=== PATIENT | female | born 1990 | race Hispanic/Latino ===

== ENCOUNTER 2016-08-16 07:57 | Inpatient (IN) | payer SELFPAY ==
[2016-08-16 08:55] LABS: Basophils % (Auto) 0.7 % (0.0-1.8); Eosinophils % (Auto) 1.7 % (0.0-4.3); Hemoglobin 14.1 gm/dl (10.1-14.3); Mean Corpuscular HGB Conc 34 % (30-34); Mean Corpuscular Hemoglobin 28 pg (28-32); Mean Corpuscular Volume 84 fl (79-97); Platelet Count 237 K/mm3 (140-440); Red Blood Count 5.03 M/mm3 (3.65-5.03); Red Cell Distribution Width 13.9 % (13.2-15.2); White Blood Count 9.5 K/mm3 (4.5-11.0)
[2016-08-16] MEDS ORDERED: NACL 0.9% 1000 ML 1,000 ML IV ONE (09:01)
[2016-08-16 09:10] LABS: Bacteria,Urine 1+ /HPF (Negative); Bilirubin,Urine NEG (Negative); Blood,Urine MOD (Negative); Ketones,Urine NEG (Negative); Leukocyte Esterase,Urine TR (Negative); Mucus,Urine 3+ /HPF; Nitrite,Urine NEG (Negative)
[2016-08-16 09:20] LABS: Alanine Aminotransferase 21 units/L (7-56); Albumin 3.9 g/dL (3.9-5); Albumin/Globulin Ratio 1.2 %; Alkaline Phosphatase 80 units/L (35-129); Anion Gap 14 mmol/L; BUN/Creatinine Ratio 14.28; Blood Urea Nitrogen 10 mg/dL (7-17); Calcium 9.3 mg/dL (8.4-10.2); Carbon Dioxide 29 mmol/L (22-30); Chloride 105.1 mmol/L (98-107); Glucose 117 mg/dL (65-100); Lipase 32 units/L (13-60); Potassium 3.7 mmol/L (3.6-5.0); Sodium 144 mmol/L (137-145); Total Protein 7.1 g/dL (6.3-8.2)
--- NOTE | 2016-08-16 10:28 | Ultrasound Report ---
Abdominal ultrasound. History: Diffuse abdominal pain. Findings: The abdominal aorta and liver are normal. There multiple gallstones. The wall of the gallbladder is thickened at 5.4 mm. There is no pericholecystic fluid. The common bile duct is normal in caliber. The kidneys are normal in size and configuration with no evidence of mass or hydronephrosis. The spleen is unremarkable. The pancreas is not well imaged. Impression: Multiple gallstones with thickening of the gallbladder wall suspicious for acute cholecystitis.
--- NOTE | 2016-08-16 10:29 | Ultrasound Report ---
Transabdominal pelvic ultrasound. History: Pelvic pain. Findings: The uterus is normal in size and configuration with no focal abnormalities. The endometrial thickness is 5.8 mm. The left ovary is normal. The right ovary is not identified, but no right adnexal masses are seen. There is no fluid within the cul-de-sac. Impression: Negative study.
--- NOTE | 2016-08-16 11:37 | Emergency Department Report ---
ED Abdominal Pain HPI - General Chief Complaint: Abdominal Pain Stated Complaint: ABD PAIN Source: patient, EMS Mode of arrival: Ambulatory Limitations: No Limitations - History of Present Illness Initial Comments: Patient gives somewhat bizarre history of being in a [facility] for 3 weeks in the liver failure. She states that she was given Maalox and medications for pain. She states that she was told that her liver failure was due to gallstones. She did not have surgical consultation. She does not refer any recent fever or chills. She complains of vague abdominal pain which sometimes involves her right upper quadrant and other times of bilateral lower quadrant region. Sometimes it is radiation to the shoulder on the right. She is not currently nauseated or vomiting. In fact she had to be awoken from sleep a number of times both on the initial encounter and on reexamination. She states that she was just released from correction. -: week(s) Location: RUQ, LLQ, RLQ Radiation: other (at times to the shoulder) Migration to: no migration Severity: moderate Quality: aching Consistency: intermittent, now resolved (now improved) Improves With: nothing Worsens With: nothing Context: other (history of gallstones) Associated Symptoms: denies other symptoms - Related Data Home Medications Medication Instructions Recorded Confirmed Last Taken No Known Home Medications [No 08/16/16 08/16/16 Unknown Reported Home Medications] Allergies Allergy/AdvReac Type Severity Reaction Status Date / Time Penicillins Allergy Vomiting Verified 08/16/16 08:07 ED Review of Systems ROS: Stated complaint: ABD PAIN Other details as noted in HPI Constitutional: denies: chills, fever Eyes: denies: eye pain, eye discharge, vision change ENT: denies: ear pain, throat pain Respiratory: denies: cough, shortness of breath, wheezing Cardiovascular: denies: chest pain, palpitations Endocrine: no symptoms reported Gastrointestinal: as per HPI, abdominal pain. denies: nausea, diarrhea Genitourinary: denies: urgency, dysuria, discharge Musculoskeletal: denies: back pain, joint swelling, arthralgia Skin: denies: rash, lesions Neurological: denies: headache, weakness, paresthesias Psychiatric: denies: anxiety, depression Hematological/Lymphatic: denies: easy bleeding, easy bruising ED Past Medical Hx - Past Medical History Previous Medical History?: Yes Additional medical history: Gallstones - Surgical History Past Surgical History?: Yes Additional Surgical History: x 4 - Social History Smoking Status: Current Every Day Smoker Substance Use Type: Alcohol, Marijuana, Non Opiate Pain, Other - Medications Home Medications: Home Medications Medication Instructions Recorded Confirmed Last Taken Type No Known Home Medications [No 08/16/16 08/16/16 Unknown History Reported Home Medications] ED Physical Exam - General Limitations: No Limitations General appearance: alert, in no apparent distress - Head Head exam: Present: atraumatic, normocephalic - Eye Eye exam: Present: normal appearance. Absent: scleral icterus, conjunctival injection - ENT ENT exam: Present: normal exam, mucous membranes moist - Neck Neck exam: Present: normal inspection - Respiratory Respiratory exam: Present: normal lung sounds bilaterally. Absent: respiratory distress - Cardiovascular Cardiovascular Exam: Present: regular rate, normal rhythm. Absent: systolic murmur, diastolic murmur, rubs, gallop - GI/Abdominal GI/Abdominal exam: Present: soft, normal bowel sounds. Absent: distended, tenderness, guarding, rebound, rigid - Extremities Exam Extremities exam: Present: normal inspection - Back Exam Back exam: Present: normal inspection - Neurological Exam Neurological exam: Present: alert, oriented X3, CN II-XII intact. Absent: motor sensory deficit - Psychiatric Psychiatric exam: Present: normal affect, normal mood - Skin Skin exam: Present: warm, dry, intact, normal color. Absent: rash ED Course Vital Signs 08/16/16 08/16/16 08:08 08:18 Temperature 97.9 F Pulse Rate 65 Respiratory 18 18 Rate Blood Pressure 106/63 O2 Sat by Pulse 97 99 Oximetry - Reevaluation(s) Reevaluation #1: Patient continues to rest comfortably in the emergency department. However, the radiologist read her abdominal ultrasound is consistent with cholecystitis. Pelvic ultrasound was negative. In consideration of this reading I started the patient on Zosyn. The patient will be admitted to the hospitalist service for further care and evaluation. 08/16/16 11:44 ED Medical Decision Making - Lab Data Result diagrams: 08/16/16 08:37 08/16/16 08:37 Laboratory Results - last 24 hr 08/16/16 08/16/16 08/16/16 08:21 08:37 08:37 WBC 9.5 RBC 5.03 Hgb 14.1 Hct 42.0 MCV 84 MCH 28 MCHC 34 RDW 13.9 Plt Count 237 Lymph % (Auto) 27.7 [place] % (Auto) 6.7 Eos % (Auto) 1.7 Baso % (Auto) 0.7 Lymph # 2.6 [place] # 0.6 Eos # 0.2 Baso # 0.1 Seg Neutrophils % 63.2 Seg Neutrophils # 6.0 Sodium 144 Potassium 3.7 Chloride 105.1 Carbon Dioxide 29 Anion Gap 14 BUN 10 Creatinine 0.7 Estimated GFR > 60 BUN/Creatinine Ratio 14.28 Glucose 117 H Calcium 9.3 Total Bilirubin 0.20 AST 21 ALT 21 Alkaline Phosphatase 80 Total Protein 7.1 Albumin 3.9 Albumin/Globulin Ratio 1.2 Lipase 32 Urine Color Veena Urine Turbidity Clear Urine pH 5.0 Ur Specific [place] 1.026 Urine Protein 30 mg/dl Urine Glucose (UA) Neg Urine Ketones Neg Urine Blood Mod Urine Nitrite Neg Urine Bilirubin Neg Urine Urobilinogen 2.0 Ur Leukocyte Esterase Tr Urine WBC (Auto) 4.0 Urine RBC (Auto) 4.0 U Epithel Cells (Auto) 12.0 Urine Bacteria (Auto) 1+ Urine Mucus 3+ Urine HCG, Qual Negative - Radiology Data Radiology results: report reviewed (consistent with acute cholecystitis and multiple gallstones) Critical care attestation.: If time is entered above; I have spent that time in minutes in the direct care of this critically ill patient, excluding procedure time. ED Disposition Clinical Impression: Acute cholecystitis, Gallstones Abdominal pain Qualifiers: Abdominal location: generalized Qualified Code(s): R10.84 - Generalized abdominal pain Disposition: OP ADMITTED IP TO THIS HOSP Is pt being admited?: Yes Does the pt Need Aspirin: No Condition: Stable Instructions: Abdominal Pain (ED) Referrals: PRIMARY CAREMD [Primary Care Provider] - 3-5 Days Time of Disposition: 11:45
[2016-08-16] MEDS ORDERED: ZOFRAN IV PRN (11:47)
[2016-08-16] MEDS ORDERED: MORPHINE IV PRN (11:47)
[2016-08-16] MEDS ORDERED: ROCEPHIN/NS 1 GM/50 ML 1 GM/50 ML BAG IV ONE (11:50)
--- NOTE | 2016-08-16 12:13 | Admit Criteria Form ---
Admission Criteria Documentation: ABDOMINAL PAIN Clinical Indications for Admission to Inpatient Care (Place 'X' for any and all applicable criteria): Admission is indicated for ANY ONE of the following(1)(2)(3)(4)(5): [X ]I. Inpatient admission required rather than observation care (Also use Abdominal Pain: Observation Care, as appropriate) because of ANY ONE of the following: [ ]a) Severe pain requiring acute inpatient management [ X]b) Identification of etiology/finding that requires inpatient care (eg, aortic dissection, free air) [ ]c) Absent bowel sounds with complete ileus(6) [ ]d) Suspected toxic megacolon [ ]e) Severe electrolyte abnormalities requiring inpatient care [ ]f) High fever or infection requiring inpatient admission as indicated by ANY ONE of following(7)(8): [ ] i) Appropriate outpatient or observational care antimicrobial treatment unavailable, not effective, or not feasible [ ] ii) Documented bacteremia [ ] iii) Temperature > 104.9 degrees F (oral) [ ] iv) T >103.1 F (oral) or < 96.8 F(rectal) that does not respond to all emergency treatment measures [ ]g) Signs of intestinal obstruction [B] [ ]h) Hemodynamic instability [ ]i) IV fluid to replace significant ongoing losses (greater than 3 L/m2 per day) (12)(13) [ ]j) Percutaneous or open drainage (eg, abscess, biliary tract ) procedures [ ]k) Parenteral nutrition regimen that must be implemented on inpatient basis [ ]l) Other condition,treatment or monitoring requiring inpatient admission. [ ]II. Peritoneal signs present [ ]III. Surgery needed that cannot be performed on an ambulatory basis. [ ]IV. Evaluation requires patient to not eat or drink for extended period ( eg, more than 24 hours). [ ]V. Contraindications and/or Inappropriate clinical situations for Observational Care in patients with abdominal pain, when ANY ONE of the following is required: [ ]a) Thorough evaluation is required to prevent catastrophic events due to delays in diagnosing (e.g.Mesenteric ischemia) 1,3 [ ]b) Patient with severe pathology or with chronic symptoms unlikely to improve in the ED stay (3) [ ]. General contraindications and/or Inappropriate clinical situations for Observational Care in patients with abdominal pain, when ANY ONE of the following is required: [ ]a) Prediction of prolongation of LOS based on ANY ONE of the following may be considered as a contraindication for observational care 2, 3, 4, 5, 6, 7, 8, 9, 10, 11 [ ]i) Age > 65 yrs. [ ]ii) Patient arriving by ambulance [ ]iii) Patient with high acuity [ ]iv) Patient requiring vital sign monitoring [ ]v) Patient on IV medication [ ]b) Systolic blood pressures 180mmHg 3,12 [ ]c) Patient with altered mental status including delirium and other alteration of consciousness, (3) [ ]d) Patient whose discharge disposition will be to a [place] [facility] home or rehabilitation home should not be managed in Emergency Department Observation Unit. CMS rule requires 3 days hospital stay before such placement.3,13 [ ]e) Patient with failure to thrive due to broad array of etiologies 3,16,17 [ ]f) Inability to ambulate 3,14 Extended stay beyond goal length of stay may be needed for(2)(3): [ ]a) Persistent abdominal pain with suspected intra-abdominal process [ ]b) Diagnosed condition requiring continued stay (e.g., pancreatitis, complicated diverticulitis) [ ]c) Surgery (e.g., colectomy) The original [facility] [employer] content created by [employer] has been revised. The portions of the content which have been revised are identified through the use of italic text or in bold, and [facility] has neither reviewed nor approved the modified material.All other unmodified content is copyright [employer]. Please see references footnoted in the original [facility] [employer] edition 2016 Admission Criteria Met: Yes
--- NOTE | 2016-08-16 22:54 | Event Note ---
Date: 08/16/16 See H/p in reports Cholelithiasis Acute cholecystitis Nicotine dependence
[2016-08-17 00:23] VITALS: BP 94/59
[2016-08-17] MEDS ORDERED: DULCOLAX PR PRN (02:26)
[2016-08-17] MEDS ORDERED: DILAUDID IV PRN (02:26)
[2016-08-17] MEDS ORDERED: ZOFRAN IV PRN (02:26)
[2016-08-17] MEDS ORDERED: TYLENOL PO PRN (02:26)
[2016-08-17] MEDS ORDERED: MILK OF MAGNESIA PO PRN (02:26)
[2016-08-17] MEDS ORDERED: D5NS 1,000 ML IV SCH (03:00)
--- NOTE | 2016-08-17 03:43 | History and Physical Report ---
CHIEF COMPLAINT: Right upper quadrant pain for 1 week. HISTORY OF PRESENT ILLNESS: A 26-year-old female apparently was in skilled nursing for 3 weeks. She has right upper quadrant pain; however, intermittently for 3 weeks the patient was told that she had gallstones. She did not have any surgical consultation. No fever, no chills. The pain is about 6-7 on a scale of 1-10. Nausea present, but now no vomiting. The patient looks comfortable. Apparently, the patient just released from skilled nursing. No exacerbating or relieving factors. CURRENT MEDICATIONS: None. PAST MEDICAL HISTORY: Other than gallstones, no hypertension, no diabetes. PAST SURGICAL HISTORY: x 4. SOCIAL HISTORY: Smokes about a pack a day. Alcohol and marijuana intermittently. None of it pain medicine. REVIEW OF SYSTEMS: Significant for right upper quadrant pain, otherwise pain is 6 on a scale of 1-10 as noted. Otherwise review of systems is essentially negative. A 14-point review of systems was done. PHYSICAL EXAMINATION: GENERAL: Young female, obese, moderately lying in bed, comfortable. VITAL SIGNS: Temperature is 97.9, pulse is 65, respirations 18, blood pressure 106/63, and sats are 97%. HEENT: Unremarkable. Pupils equal and reactive. NECK: Supple, no lymphadenopathy, no thyromegaly. LUNGS: Clear to auscultation and percussion. Good air entry. CARDIOVASCULAR: S1, S2 heard. No gallop, no murmur, no rub. Apical impulse in left fifth intercostal space in midclavicular line. ABDOMEN: Tenderness present in the right upper quadrant region. No guarding, no rigidity. Hernial orifices are normal. EXTREMITIES: Good pedal pulses. No pedal edema. IMAGING STUDIES: The patient has multiple gallstones with thickening of the gallbladder suspicious for acute cholecystitis by ultrasound. Pelvic ultrasound negative study. LABORATORY DATA: Labs are significant for white count of 9500, hemoglobin of 14.1, hematocrit of 42. Glucose is 117. Electrolytes normal. Urine negative. ASSESSMENT AND PLAN: 1. Cholelithiasis. The patient has multiple gallstones. 2. Acute cholecystitis. We will get surgical opinion. Dr. Rojas consulted. 3. Nicotine dependence, on Nicoderm patch 21 mg daily ordered. Pain control IV Dilaudid 1 mg and Zofran 4 mg q. 3 p.r.n. 4. Deep venous thrombosis prophylaxis, Lovenox 40 mg subcutaneous daily. [facility]# [id number] MARIJA/MIRNA MTDD
[2016-08-17] MEDS ORDERED: ZOSYN/NS 4.5GM/100ML 4.5 GM/100 ML VIAL IV SCH (06:00)
[2016-08-17] MEDS ORDERED: HABITROL TD SCH (10:00)
[2016-08-17] MEDS ORDERED: FLUARIX QUAD 2016-2017(36 MOS+) IM ONE (12:00)
== END 2016-08-17 00:15 | disposition left against medical advice (07) | DRG 446 ==
LOC: ED 07:57 → 3A 11:46
PROVIDERS: ADMIT Internal Medicine; ATTEND Internal Medicine
PROC: 3E0234Z Introduction of Serum, Toxoid and Vaccine into Muscle, Percutaneous Approach (ICD-10-PCS; principal; 2016-08-16)
DX: K80.00 Calculus of gallbladder with acute cholecystitis without obstruction (principal); R10.84 Generalized abdominal pain; F17.210 Nicotine dependence, cigarettes, uncomplicated; Z88.0 Allergy status to penicillin; Z23 Encounter for immunization
CPT/HCPCS: 36415; 76700; 76856; 80053; 81001; 81025; 83690; 85025; 96361; 96365; 96375; J0696; J2270; J2405; J2543; J7030

== ENCOUNTER 2016-08-28 14:39 | Emergency (ER) | payer SELFPAY ==
--- NOTE | 2016-08-28 15:41 | Emergency Department Report ---
Chief Complaint: Abdominal Pain Stated Complaint: GALLSTONES/NAUSEA/VOMITTING Time Seen by Provider: 08/28/16 15:40 - HPI History of Present Illness: known g stones in [facility] they told her also a/c liver failure did not get her help while incarcerated on probation violation ruq pain and nausea - ROS Review of Systems: see above - Exam Vital Signs: vss MSE screening note: Focused history and physical exam performed. Due to findings the following was ordered: ED Disposition for MSE Condition: Stable
[2016-08-28 15:43] VITALS: BP 119/80
[2016-08-28 17:10] LABS: Alanine Aminotransferase 334 units/L (7-56); Albumin 4.2 g/dL (3.9-5); Albumin/Globulin Ratio 1.7 %; Alkaline Phosphatase 196 units/L (35-129); Amylase 110 units/L (27-131); Anion Gap 18 mmol/L; BUN/Creatinine Ratio 14.28; Bilirubin,Direct 0.4 mg/dL (0-0.2); Bilirubin,Indirect 0.2 mg/dL; Blood Urea Nitrogen 10 mg/dL (7-17); Calcium 9.2 mg/dL (8.4-10.2); Carbon Dioxide 27 mmol/L (22-30); Chloride 105.5 mmol/L (98-107); Glucose 91 mg/dL (65-100); Potassium 4.1 mmol/L (3.6-5.0); Sodium 146 mmol/L (137-145); Total Protein 6.7 g/dL (6.3-8.2)
[2016-08-28 17:23] LABS: Basophils % (Auto) 0.7 % (0.0-1.8); Eosinophils % (Auto) 1.4 % (0.0-4.3); Hematocrit 41.5 % (30.3-42.9); Hemoglobin 13.6 gm/dl (10.1-14.3); Mean Corpuscular HGB Conc 33 % (30-34); Mean Corpuscular Hemoglobin 27 pg (28-32); Mean Corpuscular Volume 84 fl (79-97); Platelet Count 252 K/mm3 (140-440); Red Blood Count 4.97 M/mm3 (3.65-5.03); Red Cell Distribution Width 13.5 % (13.2-15.2); White Blood Count 8.1 K/mm3 (4.5-11.0)
[2016-08-28 17:32] LABS: Lipase 348 units/L (13-60)
[2016-08-28] MEDS ORDERED: NACL ONE (17:39)
[2016-08-28 19:31] LABS: Bilirubin,Urine NEG (Negative); Blood,Urine NEG (Negative); Ketones,Urine NEG (Negative); Leukocyte Esterase,Urine TR (Negative); Mucus,Urine 3+ /HPF; Nitrite,Urine NEG (Negative)
[2016-08-28 19:33] LABS: WBC,Urine < 1.0 /HPF (0.0-6.0)
--- NOTE | 2016-09-01 00:41 | ED Elopement Review ---
ED Pt Elopement review - Results review Lab results: Laboratory Tests 08/28/16 08/28/16 08/28/16 16:26 16:26 18:57 WBC 8.1 RBC 4.97 Hgb 13.6 Hct 41.5 MCV 84 MCH 27 L MCHC 33 RDW 13.5 Plt Count 252 Lymph % (Auto) 28.1 [place] % (Auto) 8.0 H Eos % (Auto) 1.4 Baso % (Auto) 0.7 Lymph # 2.3 [place] # 0.6 Eos # 0.1 Baso # 0.1 Seg Neutrophils % 61.8 Seg Neutrophils # 5.0 Sodium 146 H Potassium 4.1 Chloride 105.5 Carbon Dioxide 27 Anion Gap 18 BUN 10 Creatinine 0.7 Estimated GFR > 60 BUN/Creatinine Ratio 14.28 Glucose 91 Calcium 9.2 Total Bilirubin 0.60 Direct Bilirubin 0.4 H Indirect Bilirubin 0.2 AST 229 H ALT 334 H Alkaline Phosphatase 196 H Total Protein 6.7 Albumin 4.2 Albumin/Globulin Ratio 1.7 Amylase 110 Lipase 348 H Urine Color [place] Urine Turbidity Turbid Urine pH 7.0 Ur Specific [place] 1.021 Urine Protein 30 mg/dl Urine Glucose (UA) Neg Urine Ketones Neg Urine Blood Neg Urine Nitrite Neg Urine Bilirubin Neg Urine Urobilinogen 4.0 Ur Leukocyte Esterase Tr Urine WBC (Auto) < 1.0 Urine RBC (Auto) 24.0 U Epithel Cells (Auto) 9.0 Urine Mucus 3+ Urine HCG, Qual Negative - Call Back decision Pt Call Back Decision: Call pt to return to ED FANNIE (labs appear consistent with biliary pancreatitis)
== END 2016-08-28 20:50 | disposition left against medical advice (07) ==
LOC: ED 14:39
DX: R10.11 Right upper quadrant pain (principal); R11.0 Nausea; Z53.21 Procedure and treatment not carried out due to patient leaving prior to being seen by health care provider
CPT/HCPCS: 36415; 80048; 80074; 81001; 81025; 82150; 83690; 85025

== ENCOUNTER 2016-09-10 02:35 | Emergency (ER) | payer SELFPAY ==
[2016-09-10 03:20] LABS: Basophils % (Auto) 0.7 % (0.0-1.8); Eosinophils % (Auto) 1.2 % (0.0-4.3); Hematocrit 45.5 % (30.3-42.9); Hemoglobin 15.1 gm/dl (10.1-14.3); Mean Corpuscular HGB Conc 33 % (30-34); Mean Corpuscular Hemoglobin 27 pg (28-32); Mean Corpuscular Volume 82 fl (79-97); Platelet Count 265 K/mm3 (140-440); Red Blood Count 5.52 M/mm3 (3.65-5.03); Red Cell Distribution Width 13.2 % (13.2-15.2); White Blood Count 12.4 K/mm3 (4.5-11.0)
[2016-09-10 03:36] LABS: Alanine Aminotransferase 278 units/L (7-56); Albumin 4.5 g/dL (3.9-5); Albumin/Globulin Ratio 1.4 %; Alkaline Phosphatase 137 units/L (35-129); Anion Gap 21 mmol/L; Blood Urea Nitrogen 12 mg/dL (7-17); Calcium 9.2 mg/dL (8.4-10.2); Carbon Dioxide 26 mmol/L (22-30); Chloride 97.8 mmol/L (98-107); Glucose 94 mg/dL (65-100); Lipase 34 units/L (13-60); Potassium 3.5 mmol/L (3.6-5.0); Sodium 141 mmol/L (137-145); Total Protein 7.8 g/dL (6.3-8.2)
[2016-09-10 04:09] VITALS: BP 113/81
[2016-09-10 04:49] LABS: Bacteria,Urine 1+ /HPF (Negative); Bilirubin,Urine SM (Negative); Blood,Urine NEG (Negative); Ketones,Urine NEG (Negative); Leukocyte Esterase,Urine TR (Negative); Mucus,Urine 1+ /HPF; Nitrite,Urine NEG (Negative)
--- NOTE | 2016-09-15 14:37 | ED Elopement Review ---
ED Pt Elopement review - Results review Lab results: Laboratory Tests 09/10/16 09/10/16 09/10/16 02:56 02:56 02:56 WBC 12.4 H RBC 5.52 H Hgb 15.1 H Hct 45.5 H MCV 82 MCH 27 L MCHC 33 RDW 13.2 Plt Count 265 Lymph % (Auto) 25.8 [place] % (Auto) 8.0 H Eos % (Auto) 1.2 Baso % (Auto) 0.7 Lymph # 3.2 [place] # 1.0 H Eos # 0.1 Baso # 0.1 Seg Neutrophils % 64.3 Seg Neutrophils # 8.0 H Sodium 141 Potassium 3.5 L Chloride 97.8 L Carbon Dioxide 26 Anion Gap 21 BUN 12 Creatinine 0.6 L Estimated GFR > 60 BUN/Creatinine Ratio 20.00 Glucose 94 Calcium 9.2 Total Bilirubin 2.50 H AST 200 H ALT 278 H Alkaline Phosphatase 137 H Total Protein 7.8 Albumin 4.5 Albumin/Globulin Ratio 1.4 Lipase 34 HCG, Qual Negative Urine Color Urine Turbidity Urine pH Ur Specific [place] Urine Protein Urine Glucose (UA) Urine Ketones Urine Blood Urine Nitrite Urine Bilirubin Urine Ictotest Urine Urobilinogen Ur Leukocyte Esterase Urine WBC (Auto) Urine RBC (Auto) U Epithel Cells (Auto) Urine Bacteria (Auto) Urine Mucus 09/10/16 04:23 WBC RBC Hgb Hct MCV MCH MCHC RDW Plt Count Lymph % (Auto) [place] % (Auto) Eos % (Auto) Baso % (Auto) Lymph # [place] # Eos # Baso # Seg Neutrophils % Seg Neutrophils # Sodium Potassium Chloride Carbon Dioxide Anion Gap BUN Creatinine Estimated GFR BUN/Creatinine Ratio Glucose Calcium Total Bilirubin AST ALT Alkaline Phosphatase Total Protein Albumin Albumin/Globulin Ratio Lipase HCG, Qual Urine Color [place] Urine Turbidity Clear Urine pH 7.0 Ur Specific [place] 1.027 Urine Protein 30 mg/dl Urine Glucose (UA) Neg Urine Ketones Neg Urine Blood Neg Urine Nitrite Neg Urine Bilirubin Sm Urine Ictotest Positive Urine Urobilinogen 4.0 Ur Leukocyte Esterase Tr Urine WBC (Auto) 4.0 Urine RBC (Auto) 3.0 U Epithel Cells (Auto) 8.0 Urine Bacteria (Auto) 1+ Urine Mucus 1+ - Call Back decision Pt Call Back Decision: No action required
== END 2016-09-10 03:00 | disposition left against medical advice (07) ==
LOC: ED 02:35
DX: R10.11 Right upper quadrant pain (principal); Z53.21 Procedure and treatment not carried out due to patient leaving prior to being seen by health care provider
CPT/HCPCS: 36415; 80053; 81001; 83690; 84703; 85025